=== PATIENT | female | born 1950 | race Caucasian/White ===

== ENCOUNTER 2023-08-03 14:43 | Emergency (ER) | payer MEDICARE, OTHER ==
[2023-08-03 15:26] LABS: HEMATOCRIT 36.1 % (34.3-46.0); HEMOGLOBIN 12.7 g/dL (11.2-15.5); MEAN CORPUSCULAR HEMOGLOBIN 30.8 pg (31.6-35.5); MEAN CORPUSCULAR HGB CONC 35.2 g/dL (31.6-35.5); MEAN CORPUSCULAR VOLUME 87.6 fL (81.4-99.0); RED BLOOD CELL COUNT 4.12 M/uL (3.77-5.24); WHITE BLOOD CELL COUNT,WBC 6.6 K/uL (3.2-11.0)
[2023-08-03 15:46] LABS: CALCIUM 8.5 mg/dL (8.5-10.1); CREATININE 1.2 mg/dL (0.6-1.0); EST CRCL DRUG DOSING (CG) 29.99 mL/min; POTASSIUM,K 3.1 mmol/L (3.6-5.2)
[2023-08-03 15:49] LABS: ANION GAP 14.1 mmol/L (5.0-14.0)
[2023-08-03 15:55] LABS: INR 1.1; PROTHROMBIN TIME 10.7 sec (9.2-10.6)
== END 2023-08-03 18:01 | disposition home or self-care (01) ==
LOC: JP.ED 14:43
DX: S00.01XA Abrasion of scalp, initial encounter (principal); R06.02 Shortness of breath; Z91.048 Other nonmedicinal substance allergy status; W18.30XA Fall on same level, unspecified, initial encounter
CPT/HCPCS: 12001; 36415; 70450; 70450-26; 72125; 72125-26; 76377; 76377-26; 80048; 85027; 85610; 99283; 99285

== ENCOUNTER 2024-10-23 21:18 | Emergency (ER) | payer MEDICARE ==
[2024-10-24] MEDS ORDERED: Magnesium Hydroxide 400 MG/5 ML Susp 30 ML Cup PO PRN (00:17)
[2024-10-24] MEDS ORDERED: Acetaminophen 325 MG Tab PO PRN (00:17)
[2024-10-24] MEDS ORDERED: Sennosides/Docusate Sodium 50-8.6 MG Tab PO PRN (00:17)
[2024-10-24] MEDS ORDERED: Sodium Chloride 0.9% 10 ML Syringe FLUSH PRN (00:17)
[2024-10-24] MEDS ORDERED: ALUMINUM HYD PO SCH (06:00)
[2024-10-24] MEDS ORDERED: MAG HYDROX PO SCH (06:00)
[2024-10-24] MEDS ORDERED: SIMETH PO SCH (06:00)
[2024-10-24] MEDS ORDERED: [UNRECOGNIZED DRUG - OTHER] PO SCH (06:00)
[2024-10-24] MEDS: QUEtiapine 100 MG Tab PO SCH (06:07)
[2024-10-24] MEDS: Sennosides 8.6 MG Tab PO SCH (09:27)
[2024-10-24] MEDS: Morphine 2 MG/ML SYRINGE IVPUSH PRN (10:32)
[2024-10-24] MEDS ORDERED: Mirtazapine 15 MG Tab PO SCH (21:00)
== END 2024-10-24 15:32 | disposition home or self-care (01) ==
LOC: JP.ED 21:18 → JP.MS 23:40
PROVIDERS: ADMIT Nurse Practitioner; ATTEND Internal Medicine
DX: I48.91 Unspecified atrial fibrillation (principal); I10 Essential (primary) hypertension; Z88.8 Allergy status to other drugs, medicaments and biological substances; Z79.899 Other long term (current) drug therapy
CPT/HCPCS: 96374; 99223; 99239; 99283; 99285; G0378; J2270